=== PATIENT | female | born 1985 | race Caucasian/White ===

== ENCOUNTER 2020-04-07 18:59 | Inpatient (IN) | payer MEDICAID ==
[~2020-04-07] VITALS: Ht 157.5 cm; Wt 65.3 kg
[2020-04-07] MEDS ORDERED: SERO1TAB PO (19:16)
[2020-04-07] MEDS ORDERED: PAXI20TA29 PO (19:16)
[2020-04-07 21:07] LABS: HEMATOCRIT 42.6 % (36.0-47.0); HEMOGLOBIN 14.4 g/dl (12.0-15.5); MEAN CORPUSCULAR HEMOGLOBIN 32.3 pg (27.0-33.0); MEAN CORPUSCULAR HGB CONC 33.8 g/dl (32.0-36.5); MEAN CORPUSCULAR VOLUME 95.5 fl (80.0-96.0); PLATELET COUNT, AUTOMATED 317 10^3/uL (150-450); RED BLOOD COUNT 4.46 10^6/uL (4.00-5.40); WHITE BLOOD COUNT 8.3 10^3/uL (4.0-10.0)
[2020-04-07 21:28] LABS: AMPHETAMINES LEVEL URINE NEGATIVE (NEGATIVE); BARBITURATES URINE NEGATIVE (NEGATIVE); BENZODIAZEPINES URINE NEGATIVE (NEGATIVE); CANNABINOIDS URINE POSITIVE (NEGATIVE); COCAINE METABOLITE URINE NEGATIVE (NEGATIVE); METHADONE URINE NEGATIVE (NEGATIVE); OPIATES URINE NEGATIVE (NEGATIVE); PHENCYCLIDINE URINE NEGATIVE (NEGATIVE)
[2020-04-07 21:48] LABS: ACETAMINOPHEN LEVEL < 2.0 UG/ML (10.0-30.0); ALBUMIN 4.2 GM/DL (3.2-5.2); ALT/SGPT 18 U/L (12-78); BILIRUBIN,DIRECT < 0.1 MG/DL (0.0-0.2); BILIRUBIN,TOTAL 0.1 MG/DL (0.2-1.0); BLOOD UREA NITROGEN 8 MG/DL (7-18); CALCIUM LEVEL 9.2 MG/DL (8.5-10.1); CARBON DIOXIDE LEVEL 28 MEQ/L (21-32); CHLORIDE LEVEL 106 MEQ/L (98-107); CREATININE FOR GFR 0.68 MG/DL (0.55-1.30); ETHYL ALCOHOL (ETHANOL) 0.309 % (0.000-0.010); GLOMERULAR FILTRATION RATE > 60.0 (>60); GLUCOSE, FASTING 78 MG/DL (70-100); POTASSIUM SERUM 4.5 MEQ/L (3.5-5.1); SALICYLATE LEVEL 2.3 MG/DL (5.0-30.0); SODIUM LEVEL 144 MEQ/L (136-145); TOTAL PROTEIN 7.6 GM/DL (6.4-8.2)
[2020-04-07] MEDS ORDERED: LORazepam 2 MG TAB PO PRN (22:00)
[2020-04-07] MEDS: THIAMINE 100 MG TAB PO SCH (23:11)
[2020-04-08] MEDS ORDERED: PARO5TAB PO (08:28)
[2020-04-08] MEDS ORDERED: QUET100T2 PO (08:28)
[2020-04-08] MEDS ORDERED: CHAN1PAK11 PO (08:28)
[2020-04-08] MEDS ORDERED: QUET1TAB7 PO (08:28)
[2020-04-08] MEDS ORDERED: FOLIC ACID 1 MG TAB PO SCH (09:00)
[2020-04-08] MEDS ORDERED: MULTIVITAMINS/MINERALS THERAP 1 TAB PO SCH (09:00)
[2020-04-08] MEDS: THIAMINE 100 MG TAB PO SCH ×2 (10:03→21:06)
[2020-04-08] MEDS ORDERED: QUEtiapine FUMARATE 25 MG TAB PO ONE (11:00)
[2020-04-08] MEDS ORDERED: OXAZEPAM 15 MG CAP PO ONE (13:30)
[2020-04-08] MEDS ORDERED: MAALOX 30 ML SUSP *UDC PO PRN (13:30)
[2020-04-08] MEDS ORDERED: traZODone 50 MG TAB PO PRN (13:30)
[2020-04-08] MEDS ORDERED: MOM 30ML SUSPENSION UDC PO PRN (13:30)
[2020-04-08 16:05] VITALS: BP 136/88
[2020-04-08] MEDS: QUEtiapine FUMARATE 100 MG TAB PO SCH (21:06)
[2020-04-08] MEDS: PARoxetine 10MG TABLET PO SCH (21:06)
[2020-04-09 06:15] VITALS: BP 137/88
[2020-04-09 08:41] VITALS: BP 135/91
[2020-04-09] MEDS: QUEtiapine FUMARATE 25 MG TAB PO SCH (08:53)
[2020-04-09] MEDS: MULTIVITAMINS/MINERALS THERAP 1 TAB PO SCH (08:53)
[2020-04-09] MEDS: THIAMINE 100 MG TAB PO SCH ×2 (08:53→20:49)
[2020-04-09] MEDS: FOLIC ACID 1 MG TAB PO SCH (08:53)
[2020-04-09] MEDS ORDERED: PARoxetine 10MG TABLET PO SCH (09:00)
[2020-04-09] MEDS: LORazepam 2 MG TAB PO PRN (09:20)
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
--- NOTE | 2020-04-09 13:56 | HPEPDOC ---
[facility] Medical History & Physical Date of Admission Apr 09, 2020 Date of Service: Apr 09, 2020 History and Physical CHIEF COMPLAINT: Suicidal ideation HISTORY OF PRESENT ILLNESS: 35-year-old female with a history of alcohol use disorder, depression, anxiety, PTSD was brought to [facility] ER by family for concerns of suicidal ideation. Patient states that she didn't want to have any active suicidal ideation, but if she were to , she would not be upset about it. She feels hopeless. Having personal issues with relationships, lost her job, lost a relationship. Has a hx of SI and suicidal attempts. Has a hx of etoh use disorder, denies orior withdrawals, DTs. She currently denies any physical symptoms, shortness of breath, chest pain, palpitations, nausea, vomiting, diarrhea, fevers or chills. PAST MEDICAL HISTORY: Anxiety, depression, alcohol use disorder, PTSD PAST SURGICAL HISTORY: She denies prior surgical history. Reviewed with patient SOCIAL HISTORY: Alcohol use disorder History of substance abuse FAMILY HISTORY: Grandmother breast cancer ALLERGIES: Please see below. REVIEW OF SYSTEMS: CONSTITUTIONAL: patient denies fevers, chills HEENT: patient denies blurred vision, loss of vision, headache,. CARDIOVASCULAR: patient denies chest pain, palpitations. RESPIRATORY: patient denies shortness of breath, cough, hemoptysis. GASTROINTESTINAL: patient denies abdominal pain, n/v/d, blood in stool. GENITOURINARY: patient denies dysuria, discharge. SKIN: patient denies rashes. MUSCULOSKELETAL: patient denies joint pain, neck pain. NEUROLOGICAL: patient denies focal weakness, numbness, seizures. PSYCHIATRIC: patient denies SI/HI. ENDOCRINE: patient denies polyuria, heat intolerance, cold intolerance. HEMATOLOGIC/LYMPHATIC: patient denies easy bruising. HOME MEDICATIONS: Please see below. PHYSICAL EXAMINATION: VITAL SIGNS: please see below General: NAD, comfortable HEENT: PERRLA, EOMI, sclerae clear Neck: supple, normal ROM, no JVD Respiratory: lungs CTAB, no wheeze, no rales, no crackles CVS: RRR, normal S1, S2, no murmurs Abdo: soft, no masses, no hepatosplenomegaly, BS+, no rebound tenderness Extremities: no edema, pulses 2+ MSK: no joint deformities, normal ROM Neuro: no focal neuro deficits, moving all 4 extremities, CN2-12 intact. Strength 5/5 in all 4 extremities. No nystagmus. Psych: calm, cooperative, AAO x 3 LABORATORY DATA: See below. MICROBIOLOGY: Please see below. ASSESSMENT: 35-year-old female [facility]. Hospitalist service consulted for medical comanagement. PLAN: 1. Suicidal ideation/PTSD: Per psychiatry 2. Alcohol use disorder: Patient is on CIWA protocol. Ativan prn. Monitor for withdrawals. Agree to continue with thiamine, folic acid, multivitamin. Thank you for involving me in the care of this patient. Please reconsult as needed. Vital Signs Vital Signs Date Time Temp Pulse Resp B/P (MAP) Pulse Ox O2 Delivery O2 Flow Rate FiO2 04/09/20 08:41 102 135/91 04/09/20 06:15 98.1 16 100 Room Air Home Medications Scheduled Naltrexone HCl (Naltrexone HCl) 50 Mg Tablet, 50 MG PO QAM for craving Paroxetine HCl (Paroxetine HCl) 20 Mg Tablet, 20 MG PO QHS for mood Quetiapine Fumarate (Seroquel) 100 Mg Tablet, 150 MG PO QPM Quetiapine Fumarate (Quetiapine Fumarate) 25 Mg Tablet, 25 MG PO QAM Quetiapine Fumarate (Quetiapine Fumarate) 100 Mg Tablet, 100 MG PO QHS Quetiapine Fumarate (Quetiapine Fumarate) 50 Mg Tablet, 150 MG PO QHS for mood Quetiapine Fumarate (Quetiapine Fumarate) 25 Mg Tablet, 25 MG PO DAILY for mood Allergies Coded Allergies: Penicillins (Verified Allergy, Severe, THROAT SWELLING, 04/07/20) A-FIB/CHADSVASC A-FIB History Current/History of A-Fib/PAF?: No Current PO Anticoag Therapy: No Age/Risk Factor Scoring CHADSVASC: CHADSVASC Response (Comments) Value Age Risk Factor Age < 65 years old 0 Gender Risk Factor Female 1 Hx of CHF No 0 Hx of HTN No 0 Hx of Stroke/TIA/or VTE No 0 Hx of Diabetes No 0 Hx of Vascular Disease No 0 Total 1 RONEN WILKS MD Apr 09, 2020 13:56
[2020-04-09 16:29] VITALS: BP 139/86
[2020-04-09 17:49] VITALS: BP 139/86
[2020-04-09] MEDS: QUEtiapine FUMARATE 100 MG TAB PO SCH (20:49)
[2020-04-09] MEDS: PARoxetine 10MG TABLET PO SCH (20:49)
[2020-04-09] MEDS: PRAZOSIN 1 MG CAP PO SCH (20:49)
[2020-04-09] MEDS: MIRTAZAPINE 15 MG TAB PO SCH (20:49)
[2020-04-10 06:00] VITALS: BP 137/77
[2020-04-10 08:50] VITALS: BP 128/74
[2020-04-10] MEDS ORDERED: INFLUENZA QUADRIVALENT PF VACCINE 0.5ML SYRINGE IM ONE (09:00)
[2020-04-10] MEDS: MULTIVITAMINS/MINERALS THERAP 1 TAB PO SCH (09:27)
[2020-04-10] MEDS: QUEtiapine FUMARATE 25 MG TAB PO SCH (09:27)
[2020-04-10] MEDS: THIAMINE 100 MG TAB PO SCH (09:27)
[2020-04-10] MEDS: FOLIC ACID 1 MG TAB PO SCH (09:27)
[2020-04-10] MEDS: ACETAMINOPHEN TAB 650MG DOSE (2X325MG) PO PRN (10:46)
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
[2020-04-10] MEDS: NALTREXONE 50 MG TAB PO SCH (15:01)
[2020-04-10 16:15] VITALS: BP 124/75
[2020-04-10 16:31] VITALS: BP 137/88
[2020-04-10 20:52] VITALS: BP 148/90
[2020-04-10] MEDS: LORazepam 2 MG TAB PO PRN (20:57)
[2020-04-10] MEDS: QUEtiapine FUMARATE 100 MG TAB PO SCH (20:57)
[2020-04-10] MEDS: MIRTAZAPINE 15 MG TAB PO SCH (20:57)
[2020-04-10] MEDS: PARoxetine 10MG TABLET PO SCH (20:57)
[2020-04-10] MEDS: PRAZOSIN 1 MG CAP PO SCH (20:58)
[2020-04-10 22:45] VITALS: BP 148/92
[2020-04-11 01:15] VITALS: BP 145/88
[2020-04-11 05:30] VITALS: BP 115/74
[2020-04-11 06:33] VITALS: BP 115/62
[2020-04-11] MEDS: QUEtiapine FUMARATE 25 MG TAB PO SCH (08:31)
[2020-04-11] MEDS: NALTREXONE 50 MG TAB PO SCH (08:31)
[2020-04-11] MEDS: FOLIC ACID 1 MG TAB PO SCH (08:32)
[2020-04-11] MEDS: MULTIVITAMINS/MINERALS THERAP 1 TAB PO SCH (08:32)
[2020-04-11 09:53] VITALS: BP 124/65
--- NOTE | 2020-04-11 11:13 | MHIPNPDOC ---
[facility] Progress Note Progress Note DATE OF SERVICE: 04/11/20 Subjective HPI: Erika presents today for a follow up. She reports that she is feeling somewhat better from her depression. Patient does report that she has difficulty sleeping. MEDICATIONS: She is on a number of sleeping medications including Mirtazapine and Seroquel. Objective Affect: Constricted. Appropriate to context. Mood: Appropriately reactive. Mildy dysthymic. Generally good. Speech: Spontaneous and Fluid. Normal rate. Normal volume. Thought Form: Linear and goal directed. Thought Content: No evidence of aggressive or homicidal ideation. No evidence of delusions. No thoughts of self harm. No evidence of suicidal ideation. Judgement: Fair to poor. Insight: Fair to poor. Assessment F33.9 Major depressive disorder, recurrent, unspecified F10.99 Alcohol use, unspecified with unspecified alcohol-induced disorder Plan Discontinue Mirtazapine and Seroquel. Will use a small dose of Ambien for treatment while she is here at 2.5 mg nightly PRN to help with sleep as it appears this situation is likely related to acute adjustment and withdrawal from alcohol. Will continue her antidepressant at current dose. Vital Signs Vital Signs Date Time Temp Pulse Resp B/P (MAP) Pulse Ox O2 Delivery O2 Flow Rate FiO2 04/11/20 09:53 79 124/65 04/11/20 06:33 98.4 12 Room Air 04/09/20 06:15 100 Current Medications Current Medications Medications (Trade) Dose Ordered Sig/Minerva Route PRN Reason Start Time Stop Time Status Last Admin Dose Admin Acetaminophen (Tylenol Tab) 650 mg Q6HP PRN PO HEADACHE or DISCOMFORT 04/08/20 13:30 04/10/20 10:46 Al Hydrox/Mg Hydrox/Simethicone (Mylanta) 30 ml Q4HP PRN PO HEARTBURN/INDIGESTION 04/08/20 13:30 Folic Acid (Folic Acid) 1 mg DAILY PO 04/08/20 09:00 04/08/20 13:30 DC 04/08/20 10:03 Folic Acid (Folic Acid) 1 mg DAILY PO 04/09/20 09:00 04/11/20 08:32 Home Med (Med Rec Complete!) ASDIRECTED XX 04/08/20 08:30 04/08/20 08:30 DC Lorazepam (Ativan) 2 mg ASDIRECTED PRN PO SEE PROTOCOL 04/07/20 22:00 04/08/20 13:31 DC 04/08/20 13:23 Lorazepam (Ativan) 2 mg ASDIRECTED PRN PO SEE PROTOCOL 04/08/20 13:30 04/10/20 20:57 Magnesium Hydroxide (Milk Of Magnesia) 30 ml DAILYPRN PRN PO CONSTIPATION 04/08/20 13:30 Mirtazapine (Remeron) 15 mg QHS PO 04/09/20 21:00 04/10/20 20:57 Miscellaneous (Unresolved Clarification Entry) SEE LABEL COMMENTS DAILY XX 04/09/20 14:00 04/09/20 15:06 DC Multivitamins (Theragram-M) 1 tab DAILY PO 04/08/20 09:00 04/08/20 13:31 DC 04/08/20 10:03 Multivitamins (Theragram-M) 1 tab DAILY PO 04/09/20 09:00 04/11/20 08:32 Naltrexone HCl (Revia) 50 mg QAM PO 04/10/20 09:00 04/11/20 08:31 Paroxetine HCl (PAXil) 10 mg DAILY PO 04/09/20 09:00 04/08/20 20:58 DC Paroxetine HCl (PAXil) 10 mg QHS PO 04/08/20 21:00 04/10/20 20:57 Paroxetine HCl (PAXil) 10 mg QHS PO 04/08/21 21:00 04/08/20 21:04 DC Prazosin HCl (Minipress) 1 mg QHS PO 04/09/20 21:00 04/10/20 20:58 Quetiapine Fumarate (SEROquel) 25 mg DAILY PO 04/09/20 09:00 04/11/20 08:31 Quetiapine Fumarate (SEROquel) 100 mg QHS PO 04/08/20 21:00 04/10/20 20:57 Thiamine HCl (Thiamine HCl) 100 mg BID PO 04/07/20 21:00 04/08/20 13:32 DC 04/08/20 10:03 Thiamine HCl (Thiamine HCl) 100 mg BID PO 04/08/20 21:00 04/10/20 09:01 DC 04/10/20 09:27 Trazodone HCl (Desyrel) 50 mg QHSP PRN PO INSOMNIA 04/08/20 13:30 Cancel Allergies Coded Allergies: Penicillins (Verified Allergy, Severe, THROAT SWELLING, 04/07/20) LEYLA KWON DO Apr 11, 2020 11:13
[2020-04-11 17:54] VITALS: BP 112/68
[2020-04-11 20:02] VITALS: BP 154/92
[2020-04-11] MEDS: PARoxetine 20 MG TAB PO SCH (20:16)
[2020-04-11] MEDS: PRAZOSIN 1 MG CAP PO SCH (20:16)
[2020-04-11] MEDS ORDERED: zolPIDEM TARTRATE 5 MG TAB PO SCH (21:00)
[2020-04-12 06:53] VITALS: BP 138/86
[2020-04-12 08:06] VITALS: BP 138/86
[2020-04-12] MEDS: QUEtiapine FUMARATE 25 MG TAB PO SCH (08:40)
[2020-04-12] MEDS: MULTIVITAMINS/MINERALS THERAP 1 TAB PO SCH (08:41)
[2020-04-12] MEDS: NALTREXONE 50 MG TAB PO SCH (08:41)
[2020-04-12] MEDS: FOLIC ACID 1 MG TAB PO SCH (08:41)
--- NOTE | 2020-04-12 15:05 | MHIPNPDOC ---
[facility] Progress Note Progress Note DATE OF SERVICE: 04/12/20 HISTORY: As per previous reports: "HISTORY OF THE PRESENT ILLNESS: Patient is a 35 -year-old , female, who, as per ED report: "Pt presented to [facility] Ed with pt's uncle (Ted Guzman [phone]) Pt is a poor historian, per MD. (Please read note from Uncle ted in family support area of chart.) Pt presented with a DIAMOND of .309, at 21:00 04/07/20. Pt stated she has been having SI, no plan, off and on for over a year, called her mother last night from [place], and told "mom I don't care if I am alive or not, having suicidal thoughts, and I need help," stressors are 1: Lost her job, 2: no place to live homeless, 3: Break-up 2 months ago, is compliant with her medications she receives from an on-line service, LAKHWINDER, Paxil 12MG daily, and seraguil 25mg in am, 100mg at night, sleeps when she takes her medications, not eating well, less for past year, drinks etoh more than 2 times a week, has a card for THC, (PTSD) "smokes cannabis once a month," no AH, no VH. Pt states hopeless and helpless at this time, attempted to kill self at age 17 and 21 with an OD, hospitalized at age 17 to [facility], and family hx of maternal side of family for depression, does not know father's side. Pt had poor eye contact, and very tearful. Pt was sleeping in position. Pt states she has been suffering from panic attacks and severe anxiety lately" VITAL SIGNS: See below. NEW TEST RESULTS: See below CURRENT MEDICATIONS: See below. MENTAL STATUS EXAMINATION: General Appearance: well groomed, appears stated age, hospital scrubs/clothing Build: average Demeanor: average Eye Contact: average Activity: average Behavior: cooperative, pleasant Speech: clear, spontaneous, normal volume Mood: euthymic Affect: full, appropriate, congruent, anxious but less than 2 days ago Thought Process: logical/linear Thought Content (Delusions): none reported Thought Content (Other): denies SI/HI, thought delusions Thought Content (Aggressive): none reported Perception (Hallucinations): none reported Perception (Other): none reported Cognition (Impairment of): none reported Cognition(Intelligence Est.): average Oriented: Awake, Alert, Oriented times three Insight: fair Judgment: Fair Psychosis: Denies Diagnoses 1. Post Traumatic Stress Disorder 2. Social Anxiety disorder 3, Panic disorder 4. Agoraphobia 6. Alcohol use disorder 7. Major Depressive Disorder, recurrent, moderate-severe 8. R/O Alcohol induced depressive disorder ASSESSMENT: She tells me she has been recently started on Ambien 2.5 mgs PO QHS and she feels is not working properly. I have increased it t 5 mgs but she has an ETOH use disorder. she has to be made aware that using ETO while being on Ambien can be dangerous. MANAGEMENT PLAN: i have increased Ambien to 5 mgs PO QHS TIME SPENT: 25 minutes. Vital Signs Vital Signs Date Time Temp Pulse Resp B/P (MAP) Pulse Ox O2 Delivery O2 Flow Rate FiO2 04/12/20 08:09 Room Air 04/12/20 08:06 85 138/86 04/12/20 06:53 98.2 17 04/09/20 06:15 100 Current Medications Current Medications Medications (Trade) Dose Ordered Sig/Minerva Route PRN Reason Start Time Stop Time Status Last Admin Dose Admin Acetaminophen (Tylenol Tab) 650 mg Q6HP PRN PO HEADACHE or DISCOMFORT 04/08/20 13:30 04/10/20 10:46 Al Hydrox/Mg Hydrox/Simethicone (Mylanta) 30 ml Q4HP PRN PO HEARTBURN/INDIGESTION 04/08/20 13:30 Folic Acid (Folic Acid) 1 mg DAILY PO 04/08/20 09:00 04/08/20 13:30 DC 04/08/20 10:03 Folic Acid (Folic Acid) 1 mg DAILY PO 04/09/20 09:00 04/12/20 08:41 Home Med (Med Rec Complete!) ASDIRECTED XX 04/08/20 08:30 04/08/20 08:30 DC Lorazepam (Ativan) 2 mg ASDIRECTED PRN PO SEE PROTOCOL 04/07/20 22:00 04/08/20 13:31 DC 04/08/20 13:23 Lorazepam (Ativan) 2 mg ASDIRECTED PRN PO SEE PROTOCOL 04/08/20 13:30 04/10/20 20:57 Magnesium Hydroxide (Milk Of Magnesia) 30 ml DAILYPRN PRN PO CONSTIPATION 04/08/20 13:30 Mirtazapine (Remeron) 15 mg QHS PO 04/09/20 21:00 04/11/20 13:35 DC 04/10/20 20:57 Miscellaneous (Unresolved Clarification Entry) SEE LABEL COMMENTS DAILY XX 04/09/20 14:00 04/09/20 15:06 DC Multivitamins (Theragram-M) 1 tab DAILY PO 04/08/20 09:00 04/08/20 13:31 DC 04/08/20 10:03 Multivitamins (Theragram-M) 1 tab DAILY PO 04/09/20 09:00 04/12/20 08:41 Naltrexone HCl (Revia) 50 mg QAM PO 04/10/20 09:00 04/12/20 08:41 Paroxetine HCl (PAXil) 10 mg DAILY PO 04/09/20 09:00 04/08/20 20:58 DC Paroxetine HCl (PAXil) 10 mg QHS PO 04/08/20 21:00 04/11/20 13:35 DC 04/10/20 20:57 Paroxetine HCl (PAXil) 10 mg QHS PO 04/08/21 21:00 04/08/20 21:04 DC Paroxetine HCl (PAXil) 20 mg QHS PO 04/11/20 21:00 04/11/20 20:16 Prazosin HCl (Minipress) 1 mg QHS PO 04/09/20 21:00 04/11/20 20:16 Quetiapine Fumarate (SEROquel) 25 mg DAILY PO 04/09/20 09:00 04/12/20 08:40 Quetiapine Fumarate (SEROquel) 100 mg QHS PO 04/08/20 21:00 04/11/20 13:36 DC 04/10/20 20:57 Thiamine HCl (Thiamine HCl) 100 mg BID PO 04/07/20 21:00 04/08/20 13:32 DC 04/08/20 10:03 Thiamine HCl (Thiamine HCl) 100 mg BID PO 04/08/20 21:00 04/10/20 09:01 DC 04/10/20 09:27 Trazodone HCl (Desyrel) 50 mg QHSP PRN PO INSOMNIA 04/08/20 13:30 Cancel Zolpidem Tartrate (Ambien) 2.5 mg QHS PO 04/11/20 21:00 04/11/20 20:16 Allergies Coded Allergies: Penicillins (Verified Allergy, Severe, THROAT SWELLING, 04/07/20) CHUNG NICOLAS MD Apr 12, 2020 14:29
[2020-04-12 16:00] VITALS: BP 134/90
[2020-04-12] MEDS: PARoxetine 20 MG TAB PO SCH (20:34)
[2020-04-12] MEDS: PRAZOSIN 1 MG CAP PO SCH (20:35)
[2020-04-12] MEDS ORDERED: zolPIDEM TARTRATE 5 MG TAB PO SCH (21:00)
[2020-04-13 01:30] VITALS: BP 128/76
[2020-04-13 06:31] VITALS: BP 123/88
[2020-04-13] MEDS: FOLIC ACID 1 MG TAB PO SCH (08:03)
[2020-04-13] MEDS: QUEtiapine FUMARATE 25 MG TAB PO SCH (08:03)
[2020-04-13] MEDS: MULTIVITAMINS/MINERALS THERAP 1 TAB PO SCH (08:03)
[2020-04-13] MEDS: NALTREXONE 50 MG TAB PO SCH (08:03)
[2020-04-13 10:30] VITALS: BP 123/88
--- NOTE | 2020-04-13 15:58 | MHIPNPDOC ---
[facility] Progress Note Progress Note DATE OF SERVICE: 04/13/20 HISTORY: As per previous reports: "HISTORY OF THE PRESENT ILLNESS: Patient is a 35 -year-old , female, who, as per ED report: "Pt presented to [facility] Ed with pt's uncle (Ted Guzman [phone]) Pt is a poor historian, per MD. (Please read note from Uncle ted in family support area of chart.) Pt presented with a DIAMOND of .309, at 21:00 04/07/20. Pt stated she has been having SI, no plan, off and on for over a year, called her mother last night from [facility], and told "mom I don't care if I am alive or not, having suicidal thoughts, and I need help," stressors are 1: Lost her job, 2: no place to live homeless, 3: Break-up 2 months ago, is compliant with her medications she receives from an on-line service, LAKHWINDER, Paxil 12MG daily, and seraguil 25mg in am, 100mg at night, sleeps when she takes her medications, not eating well, less for past year, drinks etoh more than 2 times a week, has a card for THC, (PTSD) "smokes cannabis once a month," no AH, no VH. Pt states hopeless and helpless at this time, attempted to kill self at age 17 and 21 with an OD, hospitalized at age 17 to [facility] [place], and family hx of maternal side of family for depression, does not know father's side. Pt had poor eye contact, and very tearful. Pt was sleeping in position. Pt states she has been suffering from panic attacks and severe anxiety lately" VITAL SIGNS: See below. NEW TEST RESULTS: See below CURRENT MEDICATIONS: See below. MENTAL STATUS EXAMINATION: General Appearance: well groomed, appears stated age, she is wearing personal clothes at this time, wearing a face mask Build: average Demeanor: cooperative Eye Contact: average Activity: fidgety, restless Behavior: cooperative, anxious, uneasy after she heard that her grandmother didn't want her to go live at her house Speech: clear, spontaneous, normal volume Mood: anxious, sad Affect: anxious, sad, appropriate Thought Process: logical/linear Thought Content (Delusions): none reported Thought Content (Other): denies SI/HI, thought delusions. Denies SI/HI, reports feeling hopeless, helpless Thought Content (Aggressive): reports frustration Perception (Hallucinations): none reported Perception (Other): none reported Cognition (Impairment of): none reported Cognition(Intelligence Est.): average Oriented: Awake, Alert, Oriented times three Insight: fair Judgment: Fair Psychosis: Denies Diagnoses 1. Post Traumatic Stress Disorder 2. Social Anxiety disorder 3, Panic disorder 4. Agoraphobia 6. Alcohol use disorder 7. Major Depressive Disorder, recurrent, moderate-severe 8. R/O Alcohol induced depressive disorder ASSESSMENT: she is not sleeping with Ambien and I think that it could be dangerous if she decides to start drinking alcohol again. She is not really insightful about the severity of her ETOH problem, she has made all sort of excuses when we talk about her not going to AA or other Rehab programs. She says none of them work for her. Today, she had a major disappointment because her G randmother refused to take her home with her. Apparently her grandmother and her grandfather don't want her at their home because her alcohol abuse is severe. Krish has seen hr passing out in the porch and other living spaces at home. She has seen her sneaking in alcohol and GM says this problem really doesn't help her mental or physical health. When Saray heard this, she got teary eyes and said "It's Ok, I've been homeless before, I can take care of myself". She says that she was living at her work place in [place], she really didn't have a place to live in there but she doesn't have place to live in here either. She says she doesn't have any other relatives to go because they all have turned their back on her when she needed them. asked her to think about other people that she would think would be willing to take her in and if she doesn't have anybody else, she will have to go to [facility]. She says she won't take Ambien anymore and she says she will tke Seroquel, that at a certain point, she was taking 100 mgs and she stopped taking it because she was gaining amaris but she prefers to be overweight than sleepless. MANAGEMENT PLAN: Discontinued ambien and started Seroquel 100 mgs PO QHS TIME SPENT: 15 minutes. Vital Signs Vital Signs Date Time Temp Pulse Resp B/P (MAP) Pulse Ox O2 Delivery O2 Flow Rate FiO2 04/13/20 10:30 78 123/88 04/13/20 09:59 Room Air 04/13/20 06:31 97.9 16 04/09/20 06:15 100 Current Medications Current Medications Medications (Trade) Dose Ordered Sig/Minerva Route PRN Reason Start Time Stop Time Status Last Admin Dose Admin Acetaminophen (Tylenol Tab) 650 mg Q6HP PRN PO HEADACHE or DISCOMFORT 04/08/20 13:30 04/10/20 10:46 Al Hydrox/Mg Hydrox/Simethicone (Mylanta) 30 ml Q4HP PRN PO HEARTBURN/INDIGESTION 04/08/20 13:30 Folic Acid (Folic Acid) 1 mg DAILY PO 04/08/20 09:00 04/08/20 13:30 DC 04/08/20 10:03 Folic Acid (Folic Acid) 1 mg DAILY PO 04/09/20 09:00 04/13/20 08:03 Home Med (Med Rec Complete!) ASDIRECTED XX 04/08/20 08:30 04/08/20 08:30 DC Lorazepam (Ativan) 2 mg ASDIRECTED PRN PO SEE PROTOCOL 04/07/20 22:00 04/08/20 13:31 DC 04/08/20 13:23 Lorazepam (Ativan) 2 mg ASDIRECTED PRN PO SEE PROTOCOL 04/08/20 13:30 04/10/20 20:57 Magnesium Hydroxide (Milk Of Magnesia) 30 ml DAILYPRN PRN PO CONSTIPATION 04/08/20 13:30 Mirtazapine (Remeron) 15 mg QHS PO 04/09/20 21:00 04/11/20 13:35 DC 04/10/20 20:57 Miscellaneous (Unresolved Clarification Entry) SEE LABEL COMMENTS DAILY XX 04/09/20 14:00 04/09/20 15:06 DC Multivitamins (Theragram-M) 1 tab DAILY PO 04/08/20 09:00 04/08/20 13:31 DC 04/08/20 10:03 Multivitamins (Theragram-M) 1 tab DAILY PO 04/09/20 09:00 04/13/20 08:03 Naltrexone HCl (Revia) 50 mg QAM PO 04/10/20 09:00 04/13/20 08:03 Paroxetine HCl (PAXil) 10 mg DAILY PO 04/09/20 09:00 04/08/20 20:58 DC Paroxetine HCl (PAXil) 10 mg QHS PO 04/08/20 21:00 04/11/20 13:35 DC 04/10/20 20:57 Paroxetine HCl (PAXil) 10 mg QHS PO 04/08/21 21:00 04/08/20 21:04 DC Paroxetine HCl (PAXil) 20 mg QHS PO 04/11/20 21:00 04/12/20 20:34 Prazosin HCl (Minipress) 1 mg QHS PO 04/09/20 21:00 04/12/20 20:35 Quetiapine Fumarate (SEROquel) 25 mg DAILY PO 04/09/20 09:00 04/13/20 08:03 Quetiapine Fumarate (SEROquel) 100 mg QHS PO 04/08/20 21:00 04/11/20 13:36 DC 04/10/20 20:57 Thiamine HCl (Thiamine HCl) 100 mg BID PO 04/07/20 21:00 04/08/20 13:32 DC 04/08/20 10:03 Thiamine HCl (Thiamine HCl) 100 mg BID PO 04/08/20 21:00 04/10/20 09:01 DC 04/10/20 09:27 Trazodone HCl (Desyrel) 50 mg QHSP PRN PO INSOMNIA 04/08/20 13:30 Cancel Zolpidem Tartrate (Ambien) 2.5 mg QHS PO 04/11/20 21:00 04/12/20 14:55 DC 04/11/20 20:16 Zolpidem Tartrate (Ambien) 5 mg QHS PO 04/12/20 21:00 04/12/20 20:34 Allergies Coded Allergies: Penicillins (Verified Allergy, Severe, THROAT SWELLING, 04/07/20) CHUNG NICOLAS MD Apr 13, 2020 15:58
[2020-04-13 18:00] VITALS: BP 152/86
[2020-04-13] MEDS ORDERED: QUEtiapine FUMARATE 100 MG TAB PO SCH (21:00)
[2020-04-13] MEDS: PRAZOSIN 1 MG CAP PO SCH (21:17)
[2020-04-13] MEDS: PARoxetine 20 MG TAB PO SCH (21:17)
[2020-04-14 06:32] VITALS: BP 130/59
[2020-04-14] MEDS: QUEtiapine FUMARATE 25 MG TAB PO SCH (08:28)
[2020-04-14] MEDS: MULTIVITAMINS/MINERALS THERAP 1 TAB PO SCH (09:00)
[2020-04-14] MEDS: NALTREXONE 50 MG TAB PO SCH (09:00)
[2020-04-14] MEDS: FOLIC ACID 1 MG TAB PO SCH (09:00)
--- NOTE | 2020-04-14 10:30 | MHIPNPDOC ---
[facility] Progress Note Progress Note DATE OF SERVICE: 04/14/20 Subjective HPI: Saray presents today for questions about medication. She reports that she feels anxious on the unit due to multiple episodes of physical aggression from other patients. MEDICATIONS: Patient reports that she has been tried on the Seroquel and although shes not pleased with the weight gain side effects, the medication helps with her sleep. Objective Speech: Normal volume. Spontaneous and Fluid. Normal rate. Thought Content: No evidence of aggressive or homicidal ideation. No thoughts of self harm. No evidence of delusions. No evidence of suicidal ideation. Perception: No perceptual abnormalities noted. Judgement: Intact as evidenced by decision making in the recent past. Insight: Good insight into symptoms and treatment options. Assessment F33.8 Other recurrent depressive disorders F10.980 Alcohol use, unspecified with alcohol-induced anxiety disorder Plan Continue current medications with an increase of Seroquel to 150 nightly, discussed using melatonin on outpatient for weight gain. Vital Signs Vital Signs Date Time Temp Pulse Resp B/P (MAP) Pulse Ox O2 Delivery O2 Flow Rate FiO2 04/14/20 06:32 97.2 80 18 130/59 (82) Room Air 04/09/20 06:15 100 Current Medications Current Medications Medications (Trade) Dose Ordered Sig/Minerva Route PRN Reason Start Time Stop Time Status Last Admin Dose Admin Acetaminophen (Tylenol Tab) 650 mg Q6HP PRN PO HEADACHE or DISCOMFORT 04/08/20 13:30 04/10/20 10:46 Al Hydrox/Mg Hydrox/Simethicone (Mylanta) 30 ml Q4HP PRN PO HEARTBURN/INDIGESTION 04/08/20 13:30 Folic Acid (Folic Acid) 1 mg DAILY PO 04/08/20 09:00 04/08/20 13:30 DC 04/08/20 10:03 Folic Acid (Folic Acid) 1 mg DAILY PO 04/09/20 09:00 04/13/20 08:03 Home Med (Med Rec Complete!) ASDIRECTED XX 04/08/20 08:30 04/08/20 08:30 DC Lorazepam (Ativan) 2 mg ASDIRECTED PRN PO SEE PROTOCOL 04/07/20 22:00 04/08/20 13:31 DC 04/08/20 13:23 Lorazepam (Ativan) 2 mg ASDIRECTED PRN PO SEE PROTOCOL 04/08/20 13:30 04/10/20 20:57 Magnesium Hydroxide (Milk Of Magnesia) 30 ml DAILYPRN PRN PO CONSTIPATION 04/08/20 13:30 Mirtazapine (Remeron) 15 mg QHS PO 04/09/20 21:00 04/11/20 13:35 DC 04/10/20 20:57 Miscellaneous (Unresolved Clarification Entry) SEE LABEL COMMENTS DAILY XX 04/09/20 14:00 04/09/20 15:06 DC Multivitamins (Theragram-M) 1 tab DAILY PO 04/08/20 09:00 04/08/20 13:31 DC 04/08/20 10:03 Multivitamins (Theragram-M) 1 tab DAILY PO 04/09/20 09:00 04/13/20 08:03 Naltrexone HCl (Revia) 50 mg QAM PO 04/10/20 09:00 04/13/20 08:03 Paroxetine HCl (PAXil) 10 mg DAILY PO 04/09/20 09:00 04/08/20 20:58 DC Paroxetine HCl (PAXil) 10 mg QHS PO 04/08/20 21:00 04/11/20 13:35 DC 04/10/20 20:57 Paroxetine HCl (PAXil) 10 mg QHS PO 04/08/21 21:00 04/08/20 21:04 DC Paroxetine HCl (PAXil) 20 mg QHS PO 04/11/20 21:00 04/13/20 21:17 Prazosin HCl (Minipress) 1 mg QHS PO 04/09/20 21:00 04/13/20 21:17 Quetiapine Fumarate (SEROquel) 25 mg DAILY PO 04/09/20 09:00 04/14/20 08:28 Quetiapine Fumarate (SEROquel) 100 mg QHS PO 04/08/20 21:00 04/11/20 13:36 DC 04/10/20 20:57 Quetiapine Fumarate (SEROquel) 100 mg QHS PO 04/13/20 21:00 04/13/20 21:17 Thiamine HCl (Thiamine HCl) 100 mg BID PO 04/07/20 21:00 04/08/20 13:32 DC 04/08/20 10:03 Thiamine HCl (Thiamine HCl) 100 mg BID PO 04/08/20 21:00 04/10/20 09:01 DC 04/10/20 09:27 Trazodone HCl (Desyrel) 50 mg QHSP PRN PO INSOMNIA 04/08/20 13:30 Cancel Zolpidem Tartrate (Ambien) 2.5 mg QHS PO 04/11/20 21:00 04/12/20 14:55 DC 04/11/20 20:16 Zolpidem Tartrate (Ambien) 5 mg QHS PO 04/12/20 21:00 04/13/20 15:44 DC 04/12/20 20:34 Allergies Coded Allergies: Penicillins (Verified Allergy, Severe, THROAT SWELLING, 04/07/20) LEYLA KWON DO Apr 14, 2020 10:30
[2020-04-14] MEDS ORDERED: hydrOXYzine 50 MG TAB PO PRN (14:00)
[2020-04-14] MEDS: hydrOXYzine 25 MG TAB PO PRN (14:48)
[2020-04-14 16:29] VITALS: BP 141/94
[2020-04-14] MEDS: PRAZOSIN 1 MG CAP PO SCH (21:29)
[2020-04-14] MEDS: PARoxetine 20 MG TAB PO SCH (21:29)
[2020-04-14] MEDS: QUEtiapine FUMARATE 50 MG TAB PO SCH (21:29)
[2020-04-15 06:34] VITALS: BP 117/62
[2020-04-15] MEDS: MULTIVITAMINS/MINERALS THERAP 1 TAB PO SCH (08:24)
[2020-04-15] MEDS: FOLIC ACID 1 MG TAB PO SCH (08:24)
[2020-04-15] MEDS: NALTREXONE 50 MG TAB PO SCH (08:24)
[2020-04-15] MEDS: QUEtiapine FUMARATE 25 MG TAB PO SCH (08:24)
[2020-04-15 09:48] VITALS: BP 117/84
--- NOTE | 2020-04-15 09:48 | MHIPNPDOC ---
[facility] Progress Note Progress Note DATE OF SERVICE: 04/15/20 Subjective Copy HPI: Patient was met with today. She reports that her depression is starting to lift slowly, but surely. Otherwise, she reports to be engaging well on the unit, although she feels anxious about some other patients due to some recent agitation episodes. She states that shes amenable to going back on the Seroquel. Objective Copy Appearance: Fair hygiene. Fair eye contact. Affect: Mildly dysthymic. Constricted. Cognition: Grossly intact. Thought Form: Linear and goal directed. Thought Content: No thoughts of self harm. No evidence of suicidal ideation. No evidence of delusions. No evidence of aggressive or homicidal ideation. Judgement: Poor to fair. Insight: Poor to fair. Assessment Copy F33.9 Major depressive disorder, recurrent, unspecified F10.20 Alcohol dependence, uncomplicated Plan Copy Discussed with her again about melatonin, which is unavailable on the unit at this time, and about further treatment. Continue antidepressant as current. Well talk with patient about potential use of Disulfiriam as a means of helping her potential discharge as reportedly this is quite a difficult issue for her grandmother to accept. Also, conversed about the potential benefits, risks, and other related aspects to the patient. She reports to be amenable to this, although still minimizes her alcohol use. Shes not amenable to rehab at this time after discussion again. She would likely do best in this situation as her chances of doing as an outpatient and DSS housing are fairly poor. Vital Signs Vital Signs Date Time Temp Pulse Resp B/P (MAP) Pulse Ox O2 Delivery O2 Flow Rate FiO2 04/15/20 06:34 97.8 78 18 117/62 (80) Room Air 04/09/20 06:15 100 Current Medications Current Medications Medications (Trade) Dose Ordered Sig/Minerva Route PRN Reason Start Time Stop Time Status Last Admin Dose Admin Acetaminophen (Tylenol Tab) 650 mg Q6HP PRN PO HEADACHE or DISCOMFORT 04/08/20 13:30 04/10/20 10:46 Al Hydrox/Mg Hydrox/Simethicone (Mylanta) 30 ml Q4HP PRN PO HEARTBURN/INDIGESTION 04/08/20 13:30 Folic Acid (Folic Acid) 1 mg DAILY PO 04/08/20 09:00 04/08/20 13:30 DC 04/08/20 10:03 Folic Acid (Folic Acid) 1 mg DAILY PO 04/09/20 09:00 04/15/20 08:24 Home Med (Med Rec Complete!) ASDIRECTED XX 04/08/20 08:30 04/08/20 08:30 DC Hydroxyzine HCl (Atarax) 25 mg Q8HP PRN PO anxiety 04/14/20 14:00 04/14/20 14:48 Hydroxyzine HCl (Atarax) 50 mg Q8HP PRN PO anxiety 04/14/20 14:00 04/14/20 13:59 DC Lorazepam (Ativan) 2 mg ASDIRECTED PRN PO SEE PROTOCOL 04/07/20 22:00 04/08/20 13:31 DC 04/08/20 13:23 Lorazepam (Ativan) 2 mg ASDIRECTED PRN PO SEE PROTOCOL 04/08/20 13:30 04/10/20 20:57 Magnesium Hydroxide (Milk Of Magnesia) 30 ml DAILYPRN PRN PO CONSTIPATION 04/08/20 13:30 Mirtazapine (Remeron) 15 mg QHS PO 04/09/20 21:00 04/11/20 13:35 DC 04/10/20 20:57 Miscellaneous (Unresolved Clarification Entry) SEE LABEL COMMENTS DAILY XX 04/09/20 14:00 04/09/20 15:06 DC Multivitamins (Theragram-M) 1 tab DAILY PO 04/08/20 09:00 04/08/20 13:31 DC 04/08/20 10:03 Multivitamins (Theragram-M) 1 tab DAILY PO 04/09/20 09:00 04/15/20 08:24 Naltrexone HCl (Revia) 50 mg QAM PO 04/10/20 09:00 04/15/20 08:24 Paroxetine HCl (PAXil) 10 mg DAILY PO 04/09/20 09:00 04/08/20 20:58 DC Paroxetine HCl (PAXil) 10 mg QHS PO 04/08/20 21:00 04/11/20 13:35 DC 04/10/20 20:57 Paroxetine HCl (PAXil) 10 mg QHS PO 04/08/21 21:00 04/08/20 21:04 DC Paroxetine HCl (PAXil) 20 mg QHS PO 04/11/20 21:00 04/14/20 21:29 Prazosin HCl (Minipress) 1 mg QHS PO 04/09/20 21:00 04/14/20 21:29 Quetiapine Fumarate (SEROquel) 25 mg DAILY PO 04/09/20 09:00 04/15/20 08:24 Quetiapine Fumarate (SEROquel) 100 mg QHS PO 04/08/20 21:00 04/11/20 13:36 DC 04/10/20 20:57 Quetiapine Fumarate (SEROquel) 100 mg QHS PO 04/13/20 21:00 04/14/20 13:57 DC 04/13/20 21:17 Quetiapine Fumarate (SEROquel) 150 mg QHS PO 04/14/20 21:00 04/14/20 21:29 Thiamine HCl (Thiamine HCl) 100 mg BID PO 04/07/20 21:00 04/08/20 13:32 DC 04/08/20 10:03 Thiamine HCl (Thiamine HCl) 100 mg BID PO 04/08/20 21:00 04/10/20 09:01 DC 04/10/20 09:27 Trazodone HCl (Desyrel) 50 mg QHSP PRN PO INSOMNIA 04/08/20 13:30 Cancel Zolpidem Tartrate (Ambien) 2.5 mg QHS PO 04/11/20 21:00 04/12/20 14:55 DC 04/11/20 20:16 Zolpidem Tartrate (Ambien) 5 mg QHS PO 04/12/20 21:00 04/13/20 15:44 DC 04/12/20 20:34 Allergies Coded Allergies: Penicillins (Verified Allergy, Severe, THROAT SWELLING, 04/07/20) LEYLA KWON DO Apr 15, 2020 09:48
[2020-04-15] MEDS: hydrOXYzine 25 MG TAB PO PRN (10:29)
[2020-04-15] MEDS: QUEtiapine FUMARATE 50 MG TAB PO SCH (22:38)
[2020-04-15] MEDS: PARoxetine 20 MG TAB PO SCH (22:38)
[2020-04-15] MEDS: PRAZOSIN 1 MG CAP PO SCH (22:39)
[2020-04-16 06:32] VITALS: BP 115/65
[2020-04-16] MEDS: MULTIVITAMINS/MINERALS THERAP 1 TAB PO SCH (08:38)
[2020-04-16] MEDS: NALTREXONE 50 MG TAB PO SCH (08:38)
[2020-04-16] MEDS: FOLIC ACID 1 MG TAB PO SCH (08:38)
[2020-04-16] MEDS: QUEtiapine FUMARATE 25 MG TAB PO SCH (08:38)
[2020-04-16 16:00] VITALS: BP 115/65
[2020-04-16] MEDS: hydrOXYzine 25 MG TAB PO PRN (16:03)
[2020-04-16] MEDS: PARoxetine 20 MG TAB PO SCH (22:05)
[2020-04-16] MEDS: QUEtiapine FUMARATE 50 MG TAB PO SCH (22:05)
[2020-04-16] MEDS: PRAZOSIN 1 MG CAP PO SCH (22:06)
[2020-04-17 06:50] VITALS: BP 123/58
[2020-04-17] MEDS: QUEtiapine FUMARATE 25 MG TAB PO SCH (09:30)
[2020-04-17] MEDS: MULTIVITAMINS/MINERALS THERAP 1 TAB PO SCH (09:31)
[2020-04-17] MEDS: NALTREXONE 50 MG TAB PO SCH (09:31)
[2020-04-17] MEDS: FOLIC ACID 1 MG TAB PO SCH (09:31)
[2020-04-17] MEDS: hydrOXYzine 25 MG TAB PO PRN ×2 (09:49→17:46)
[2020-04-17] MEDS: ACETAMINOPHEN TAB 650MG DOSE (2X325MG) PO PRN (09:49)
[2020-04-17] MEDS ORDERED: hydrOXYzine 25 MG TAB PO STA (13:00)
[2020-04-17 18:54] VITALS: BP 142/90
[2020-04-17] MEDS: PRAZOSIN 1 MG CAP PO SCH (22:06)
[2020-04-17] MEDS: PARoxetine 20 MG TAB PO SCH (22:07)
[2020-04-17] MEDS: QUEtiapine FUMARATE 50 MG TAB PO SCH (22:07)
[2020-04-18 06:56] VITALS: BP 133/75
[2020-04-18] MEDS: QUEtiapine FUMARATE 25 MG TAB PO SCH (08:51)
[2020-04-18] MEDS: MULTIVITAMINS/MINERALS THERAP 1 TAB PO SCH (08:51)
[2020-04-18] MEDS: NALTREXONE 50 MG TAB PO SCH (08:51)
[2020-04-18] MEDS: hydrOXYzine 25 MG TAB PO PRN ×2 (08:51→20:36)
[2020-04-18] MEDS: FOLIC ACID 1 MG TAB PO SCH (08:51)
--- NOTE | 2020-04-18 09:43 | MHIPNPDOC ---
[facility] Progress Note Progress Note DATE OF SERVICE: 04/18/20 HISTORY: The patient is met with today, she reports that she is doing well she is a bit anxious about being discharged as she reports she doesn't have ID and is worried about this being an issue with DSS. Discussed with patient her discharge plans she still ambivalent about having treatment for alcohol use problems and otherwise feels that it is not a major problem for her. The staff reports she is generally done well and mildly anxious but engaged and friendly. VITAL SIGNS: See below. NEW TEST RESULTS: None. CURRENT MEDICATIONS: See below. MENTAL STATUS EXAMINATION: General: [Well dressed with good hygiene] Speech: [Spontaneous and fluid] Thought processes: [Linear and logical] Thought content: [Future orientated] Abstract reasoning, and computation: [Intact] Description of associations: [Intact] Description of abnormal or psychotic thoughts:[Denies any suicidal or homicidal ideation. Denies any auditory or visual hallucinations. Does not appear to be responding to internal stimuli. Does not appear to be endorsing any bizarre or paranoid ideation.] Judgment: Fair to poor, related to alcohol use Insight: Fair to poor related to alcohol use Orientation: [Alert and orientated 3] Recent and remote memory: [Intact] Attention span and concentration: [Intact] Fund of knowledge: [Adequate] Mood: "Good" Affect: Mildly anxious DIAGNOSES: 1. Unspecified depressive disorder. 2. Alcohol use disorder unspecified. 3. . ASSESSMENT: The patient is making good progress, she still pre-contemplative about her alcohol use and is not interested in treatment related to it, she does appear to be doing well on her antidepressant and she has been amenable to taking the naltrexone. Will work on potential discharge plans including DSS as her grandmother has been not compromising on her returning to home. MANAGEMENT PLAN: Will continue Paxil 20 mg daily, naltrexone and Seroquel 150 mg nightly/25 mg daily. Potential for discharge tomorrow will attempt to begin safety planning today. TIME SPENT: 15 minutes. Vital Signs Vital Signs Date Time Temp Pulse Resp B/P (MAP) Pulse Ox O2 Delivery O2 Flow Rate FiO2 04/18/20 06:56 97.5 105 18 133/75 (94) 95 Room Air Current Medications Current Medications Medications (Trade) Dose Ordered Sig/Minerva Route PRN Reason Start Time Stop Time Status Last Admin Dose Admin Acetaminophen (Tylenol Tab) 650 mg Q6HP PRN PO HEADACHE or DISCOMFORT 04/08/20 13:30 04/17/20 09:49 Al Hydrox/Mg Hydrox/Simethicone (Mylanta) 30 ml Q4HP PRN PO HEARTBURN/INDIGESTION 04/08/20 13:30 Folic Acid (Folic Acid) 1 mg DAILY PO 04/08/20 09:00 04/08/20 13:30 DC 04/08/20 10:03 Folic Acid (Folic Acid) 1 mg DAILY PO 04/09/20 09:00 04/18/20 08:51 Home Med (Med Rec Complete!) ASDIRECTED XX 04/08/20 08:30 04/08/20 08:30 DC Hydroxyzine HCl (Atarax) 25 mg Q8HP PRN PO anxiety 04/14/20 14:00 04/18/20 08:51 Hydroxyzine HCl (Atarax) 25 mg STAT STAT PO 04/17/20 13:00 04/17/20 13:01 DC 04/17/20 13:07 Hydroxyzine HCl (Atarax) 50 mg Q8HP PRN PO anxiety 04/14/20 14:00 04/14/20 13:59 DC Lorazepam (Ativan) 2 mg ASDIRECTED PRN PO SEE PROTOCOL 04/07/20 22:00 04/08/20 13:31 DC 04/08/20 13:23 Lorazepam (Ativan) 2 mg ASDIRECTED PRN PO SEE PROTOCOL 04/08/20 13:30 04/10/20 20:57 Magnesium Hydroxide (Milk Of Magnesia) 30 ml DAILYPRN PRN PO CONSTIPATION 04/08/20 13:30 Mirtazapine (Remeron) 15 mg QHS PO 04/09/20 21:00 04/11/20 13:35 DC 04/10/20 20:57 Miscellaneous (Unresolved Clarification Entry) SEE LABEL COMMENTS DAILY XX 04/09/20 14:00 04/09/20 15:06 DC Multivitamins (Theragram-M) 1 tab DAILY PO 04/08/20 09:00 04/08/20 13:31 DC 04/08/20 10:03 Multivitamins (Theragram-M) 1 tab DAILY PO 04/09/20 09:00 04/18/20 08:51 Naltrexone HCl (Revia) 50 mg QAM PO 04/10/20 09:00 04/18/20 08:51 Paroxetine HCl (PAXil) 10 mg DAILY PO 04/09/20 09:00 04/08/20 20:58 DC Paroxetine HCl (PAXil) 10 mg QHS PO 04/08/20 21:00 04/11/20 13:35 DC 04/10/20 20:57 Paroxetine HCl (PAXil) 10 mg QHS PO 04/08/21 21:00 04/08/20 21:04 DC Paroxetine HCl (PAXil) 20 mg QHS PO 04/11/20 21:00 04/17/20 22:07 Prazosin HCl (Minipress) 1 mg QHS PO 04/09/20 21:00 04/17/20 22:06 Quetiapine Fumarate (SEROquel) 25 mg DAILY PO 04/09/20 09:00 04/18/20 08:51 Quetiapine Fumarate (SEROquel) 100 mg QHS PO 04/08/20 21:00 04/11/20 13:36 DC 04/10/20 20:57 Quetiapine Fumarate (SEROquel) 100 mg QHS PO 04/13/20 21:00 04/14/20 13:57 DC 04/13/20 21:17 Quetiapine Fumarate (SEROquel) 150 mg QHS PO 04/14/20 21:00 04/17/20 22:07 Thiamine HCl (Thiamine HCl) 100 mg BID PO 04/07/20 21:00 04/08/20 13:32 DC 04/08/20 10:03 Thiamine HCl (Thiamine HCl) 100 mg BID PO 04/08/20 21:00 04/10/20 09:01 DC 04/10/20 09:27 Trazodone HCl (Desyrel) 50 mg QHSP PRN PO INSOMNIA 04/08/20 13:30 Cancel Zolpidem Tartrate (Ambien) 2.5 mg QHS PO 04/11/20 21:00 04/12/20 14:55 DC 04/11/20 20:16 Zolpidem Tartrate (Ambien) 5 mg QHS PO 04/12/20 21:00 04/13/20 15:44 DC 04/12/20 20:34 Allergies Coded Allergies: Penicillins (Verified Allergy, Severe, THROAT SWELLING, 04/07/20) LEYLA KWON DO Apr 18, 2020 09:43
[2020-04-18] MEDS ORDERED: OXAZEPAM 10 MG CAP PO ONE (15:45)
[2020-04-18 16:49] VITALS: BP 123/87
[2020-04-18] MEDS: QUEtiapine FUMARATE 50 MG TAB PO SCH (20:36)
[2020-04-18] MEDS: PARoxetine 20 MG TAB PO SCH (20:36)
[2020-04-18 20:37] VITALS: BP 136/88
[2020-04-18] MEDS: PRAZOSIN 1 MG CAP PO SCH (20:37)
[2020-04-19 06:15] VITALS: BP 125/70
[2020-04-19] MEDS: FOLIC ACID 1 MG TAB PO SCH (08:35)
[2020-04-19] MEDS: NALTREXONE 50 MG TAB PO SCH (08:35)
[2020-04-19] MEDS: QUEtiapine FUMARATE 25 MG TAB PO SCH (08:36)
[2020-04-19] MEDS: MULTIVITAMINS/MINERALS THERAP 1 TAB PO SCH (08:36)
--- NOTE | 2020-04-19 09:56 | MHDSPDOC ---
[facility] Discharge Summary Discharge Summary DATE OF ADMISSION: Apr 08, 2020 at 13:22 DATE OF DISCHARGE:Apr 19, 2020 at 12:15 DISCHARGE DIAGNOSES: Unspecified depressive disorder Alcohol use disorder CONSULTANTS INVOLVED:[ None (basic hospitalist screening)] REASON FOR ADMISSION & TREATMENT AND PROGRESS ON THE UNIT : . The patient was admitted to the inpatient mental health unit after developing suicidal thoughts will intoxicated, she was admitted and resumed on her home Paxil 10 mg daily increased to a total 20 mg daily. She was additionally started on naltrexone 50 mg day for her alcohol use, she was tried on low-dose Ambien with poor results, mirtazapine did produce any helpfulness for her insomnia as well. She was resumed on Seroquel up to a total of the hundred 50 Milgram's daily 25 Milgram's a day, she reported this was helpful, but she was displeased with the weight gain, suggested use of melatonin as an outpatient. She generally did well and made good progress on the unit, despite some patience being more aggressive and threatening. She was able to cope with various stressors and only had to use PRN's intermittently. On her discharge. We had found some alcohol in her property, discussed with mental health director, and I discussed with the patient that my strongest recommendation that she not engage in drinking, especially given the situation, brought her in. We had attempted to get her to be able to be discharged home to her grandmother, but they would not accept her home due to her drinking even with use of disulfiram. The patient understood this and agreed in theory, however, was unwilling to relinquish the alcohol and given the information given to me by the mental health director is that we do not have the authority to refuse returning it. The patient was triaged for discharge with DSS, however she wants to stay with a friend that she had made on the unit, emphasize the importance of going to DSS in establishing services and suggested against this course of action. DISCHARGE ASSESSMENT[improved] Legal status considerations: The patient at the time of discharge did not meet criteria for involuntary admission/extension due to having a [normal] mental status exam, improved insight into the situation, They are engaged in the discharge process, as well as being friendly and amenable in behavioral control and havent been engaging in any observed concerning behavior or ideation recently. They decline voluntary extension/admission at this time and must be discharged in good suzi, as Im unable to make a case for holding the patient against their will. They may have historical risk factors of admissions and other interactions with psychiatry however, those are not modifiable from a clinical perspective. The patient will need to be discharged in good suzi. MENTAL STATUS EXAMINATION ON DISCHARGE: General: [Well dressed with good hygiene] Speech: [Spontaneous and fluid] Thought processes: [Linear and logical] Thought content: [Future orientated] Abstract reasoning, and computation: [Intact] Description of associations: [Intact] Description of abnormal or psychotic thoughts:[Denies any suicidal or homicidal ideation. Denies any auditory or visual hallucinations. Does not appear to be responding to internal stimuli. Does not appear to be endorsing any bizarre or paranoid ideation.] Judgment: improved Insight: improved Orientation: [Alert and orientated 3] Recent and remote memory: [Intact] Attention span and concentration: [Intact] Fund of knowledge: [Adequate] Mood: ["okay"] Affect: [Euthymic with a full range] PLAN/FOLLOWUP ARRANGEMENTS: Follow up appointments made (PCP and MH in 5 days of D/C date) and safety plan completed. Safety Planning aspects completed prior to discharge [Medication supplies limited to 7 days with 4 refills to prevent accumulation to OD] gave referral information for DSS strongest emphasis for going to DSS as soon as possible for housing [RN reviewed crisis hotline information and other aspects to empower patient to access care in interim before next appointment.] The amount of time spent in the coordination of care for this patient was roxane roximately 30 minutes. Vital Signs/I&Os Vital Signs Date Time Temp Pulse Resp B/P (MAP) Pulse Ox O2 Delivery O2 Flow Rate FiO2 04/19/20 06:15 97.7 90 16 125/70 (88) 97 Room Air Medications Scheduled Naltrexone HCl (Naltrexone HCl) 50 Mg Tablet, 50 MG PO QAM for craving for 7 Days, #7 Paroxetine HCl (Paroxetine HCl) 20 Mg Tablet, 20 MG PO QHS for mood for 7 Days, #7 Quetiapine Fumarate (Seroquel) 100 Mg Tablet, 150 MG PO QPM for 30 Days, #30 (Reported) Quetiapine Fumarate (Quetiapine Fumarate) 25 Mg Tablet, 25 MG PO QAM, (Reported) Quetiapine Fumarate (Quetiapine Fumarate) 100 Mg Tablet, 100 MG PO QHS, (Reported) Quetiapine Fumarate (Quetiapine Fumarate) 50 Mg Tablet, 150 MG PO QHS for mood for 7 Days, #21 Quetiapine Fumarate (Quetiapine Fumarate) 25 Mg Tablet, 25 MG PO DAILY for mood for 7 Days, #7 Allergies Coded Allergies: Penicillins (Verified Allergy, Severe, THROAT SWELLING, 04/07/20) LEYLA KWON DO Apr 19, 2020 09:56
[2020-04-19] MEDS ORDERED: QUET5TAB PO (10:13)
[2020-04-19] MEDS ORDERED: NALT50TA4 PO (10:13)
[2020-04-19] MEDS ORDERED: QUET1TAB7 PO (10:13)
[2020-04-19] MEDS ORDERED: PARO20TA3 PO (10:13)
[2021-04-08] MEDS ORDERED: PARoxetine 10MG TABLET PO SCH (21:00)
== END 2020-04-19 12:15 | disposition home or self-care (01) | DRG 751 ==
LOC: M ED 18:59 → EDBD 18:59 → M ED INP 04-08 13:22 → M PSY 04-08 14:28
PROVIDERS: ADMIT Psychiatry & Neurology Addiction Medicine; ATTEND Psychiatry & Neurology Addiction Medicine
DX: F33.9 Major depressive disorder, recurrent, unspecified (principal); F40.01 Agoraphobia with panic disorder; F40.10 Social phobia, unspecified; F10.10 Alcohol abuse, uncomplicated; F43.10 Post-traumatic stress disorder, unspecified; Z62.810 Personal history of physical and sexual abuse in childhood; Z91.410 Personal history of adult physical and sexual abuse; Z91.411 Personal history of adult psychological abuse; Z79.899 Other long term (current) drug therapy; Z59.0 Homelessness

== ENCOUNTER 2020-05-13 05:13 | Inpatient (IN) | payer MEDICAID, OTHER ==
[~2020-05-13] VITALS: Ht 157.5 cm; Wt 64.9 kg
[~2020-05-13 05:13] MED LIST: CHAN1PAK11 PO; NALT50TA4 PO; PARO20TA3 PO; PARO5TAB PO; PAXI20TA29 PO; QUET100T2 PO; QUET1TAB7 PO; QUET5TAB PO; SERO1TAB PO
[2020-05-13] MEDS ORDERED: KLON0.5T PO (05:23)
[2020-05-13] MEDS ORDERED: NS 1,000 ML IV ONE ×2 (05:30)
[2020-05-13] MEDS ORDERED: CHARCOAL ACTIVATED LIQUID 25 GM/120 ML BTL PO ONE (06:00)
[2020-05-13 06:10] LABS: VENOUS BASE EXCESS -2.8 (-2.0-2.0); VENOUS HCO3 22.8 MEQ/L (23.0-27.0); VENOUS O2 SATURATION 96.1 % (60.0-80.0); VENOUS PARTIAL PRESSURE CO2 42.2 mmHg (38.0-50.0); VENOUS PARTIAL PRESSURE O2 86.5 mmHg (30.0-50.0); VENOUS STANDARD HCO3 22.2 MEQ/L; VENOUS TOTAL CO2 24.1 MEQ/L (24.0-28.0)
[2020-05-13 06:14] LABS: BASO # 0.1 10^3/uL (0.0-0.2); BASO % 0.9 % (0.0-1.0); EOS # 0.3 10^3/uL (0.0-0.5); EOS % 3.3 % (0.0-3.0); HEMATOCRIT 41.9 % (36.0-47.0); HEMOGLOBIN 14.3 g/dl (12.0-15.5); LYMPH # 1.9 10^3/uL (1.5-5.0); LYMPH % 24.7 % (24.0-44.0); MEAN CORPUSCULAR HEMOGLOBIN 32.3 pg (27.0-33.0); MEAN CORPUSCULAR HGB CONC 34.1 g/dl (32.0-36.5); MEAN CORPUSCULAR VOLUME 94.6 fl (80.0-96.0); MONO # 0.6 10^3/uL (0.0-0.8); MONO % 7.8 % (0.0-5.0); NEUTROPHILS # 4.7 10^3/uL (1.5-8.5); NEUTROPHILS % 62.5 % (36.0-66.0); PLATELET COUNT, AUTOMATED 249 10^3/uL (150-450); RED BLOOD COUNT 4.43 10^6/uL (4.00-5.40); WHITE BLOOD COUNT 7.5 10^3/uL (4.0-10.0)
[2020-05-13] MEDS ORDERED: ONDANSETRON 4MG/2ML VIAL IV ONE (06:30)
[2020-05-13 06:56] LABS: ACETAMINOPHEN LEVEL < 2.0 UG/ML (10.0-30.0); ALBUMIN 4.1 GM/DL (3.2-5.2); ALT/SGPT 25 U/L (12-78); BILIRUBIN,DIRECT < 0.1 MG/DL (0.0-0.2); BILIRUBIN,TOTAL 0.1 MG/DL (0.2-1.0); BLOOD UREA NITROGEN 11 MG/DL (7-18); CARBON DIOXIDE LEVEL 27 MEQ/L (21-32); CHLORIDE LEVEL 107 MEQ/L (98-107); CPK CREATINE PHOSPHOKINASE 180 U/L (26-192); CREATININE FOR GFR 0.67 MG/DL (0.55-1.30); ETHYL ALCOHOL (ETHANOL) 0.285 % (0.000-0.010); GLOMERULAR FILTRATION RATE > 60.0 (>60); GLUCOSE, FASTING 101 MG/DL (70-100); POTASSIUM SERUM 3.7 MEQ/L (3.5-5.1); SALICYLATE LEVEL 3.1 MG/DL (5.0-30.0); SODIUM LEVEL 142 MEQ/L (136-145); THYROID STIMULATING HORMONE 0.807 uIU/ML (0.358-3.740); TOTAL PROTEIN 7.5 GM/DL (6.4-8.2)
--- NOTE | 2020-05-13 07:38 | ECGEPIP ---
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
[2020-05-13 08:42] LABS: AMPHETAMINES LEVEL URINE NEGATIVE (NEGATIVE); BARBITURATES URINE NEGATIVE (NEGATIVE); BENZODIAZEPINES URINE NEGATIVE (NEGATIVE); CANNABINOIDS URINE POSITIVE (NEGATIVE); COCAINE METABOLITE URINE NEGATIVE (NEGATIVE); METHADONE URINE NEGATIVE (NEGATIVE); OPIATES URINE NEGATIVE (NEGATIVE); PHENCYCLIDINE URINE NEGATIVE (NEGATIVE)
[2020-05-13 08:46] LABS: RSV AMPLIFICATION NEGATIVE (NEGATIVE)
[2020-05-13] MEDS ORDERED: FOLIC ACID 1 MG TAB PO SCH (09:00)
[2020-05-13] MEDS ORDERED: MULTIVITAMINS/MINERALS THERAP 1 TAB PO SCH (09:00)
[2020-05-13] MEDS ORDERED: LORazepam 2 MG TAB PO PRN (13:45)
[2020-05-13] MEDS: THIAMINE 100 MG TAB PO SCH ×2 (14:35→21:47)
[2020-05-13] MEDS ORDERED: PARO20TA3 PO (16:13)
[2020-05-13] MEDS ORDERED: QUET5TAB PO (16:13)
[2020-05-13] MEDS ORDERED: MOM 30ML SUSPENSION UDC PO PRN (21:45)
[2020-05-13] MEDS ORDERED: ACETAMINOPHEN TAB 650MG DOSE (2X325MG) PO PRN (21:45)
[2020-05-13] MEDS ORDERED: traZODone 50 MG TAB PO PRN (21:45)
[2020-05-13] MEDS ORDERED: MAALOX 30 ML SUSP *UDC PO PRN (21:45)
[2020-05-13 22:48] VITALS: BP 135/85
[2020-05-13] MEDS: PARoxetine 20MG TABLET PO SCH (22:50)
[2020-05-13] MEDS: QUEtiapine FUMARATE 50 MG TAB PO SCH (22:51)
[2020-05-13] MEDS: LORazepam 2 MG TAB PO PRN (23:05)
[2020-05-14 06:32] VITALS: BP 132/91
[2020-05-14] MEDS: QUEtiapine FUMARATE 25 MG TAB PO SCH (08:42)
[2020-05-14] MEDS: THIAMINE 100 MG TAB PO SCH ×2 (08:43→20:50)
[2020-05-14] MEDS: FOLIC ACID 1 MG TAB PO SCH (08:43)
[2020-05-14] MEDS: MULTIVITAMINS/MINERALS THERAP 1 TAB PO SCH (08:43)
[2020-05-14] MEDS: NICOTINE 21MG/24HR 1 EA TRANSDERMAL TD SCH (08:43)
[2020-05-14 08:49] VITALS: BP 163/81
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
[2020-05-14 16:00] VITALS: BP 158/92
[2020-05-14] MEDS: LORazepam 2 MG TAB PO PRN ×2 (16:10→21:49)
--- NOTE | 2020-05-14 17:37 | HPEPDOC ---
[facility] Medical History & Physical Date of Admission May 13, 2020 Date of Service: May 14, 2020 Attending Physician: MARILY POSADAS DO History and Physical CHIEF COMPLAINT: Unspecified depressive disorder HISTORY OF PRESENT ILLNESS: Ms. Capellan is a 35 year old female with alcohol use disorder, depression, anxiety, and PTSD who is in the inpatient mental health unit for unspecified depressive disorder. She was recently here on Apr 19, 2020 for depression with suicidal ideation. After leaving, she was under a lot of stress. It got to the point where she did not care any more and she injected meth and keila. Afterwards, she realized she needed help and is now in the inpatient mental health unit. Today, she feels anxious, but feels that this is part of the alcohol withdrawal. Otherwise she has tremors in her hands. PAST MEDICAL HISTORY: 1. Anxiety 2. Depression 3. Alcohol use disorder 4. PTSD PAST SURGICAL HISTORY: Denies any past surgical history SOCIAL HISTORY: Tobacco use: Current smoker ETOH: Drinks alcohol, currently undergoing withdrawal symptoms Illicit drug use: Recent used IV meth and keila, but says it has been a decade since she last used IV drugs FAMILY HISTORY: Father: Unknown history per patient Mother: Diabetes mellitus ALLERGIES: Please see below. REVIEW OF SYSTEMS: CONSTITUTIONAL: Denies any fever or chills. Denies lightheadedness or dizziness. ENT: Denies sore throat. Denies dysphagia. RESPIRATORY: Denies shortness of breath. Denies cough. CARDIOVASCULAR: Denies chest pain. Denies palpitations. GASTROINTESTINAL: Denies abdominal pain. Reports constipation (normal BM for her is every other day) GENITOURINARY: Denies dysuria. CUTANEOUS: Denies rashes. MUSCULOSKELETAL: Denies muscle weakness. NEUROLOGICAL: Denies neuropathy. Denies paresthesias. PSYCHOLOGICAL: Reports anxiety. HOME MEDICATIONS: Please see below. PHYSICAL EXAMINATION: VITAL SIGNS: Temperature 97.5, pulse 90, respiratory rate 99, blood pressure 158/92, pulse oximetry 99 % on room air. GENERAL: Comfortable, in no apparent distress. HEENT: Head normocephalic/atraumatic, EOMI, sclera clear. NECK: Supple, no JVD. RESPIRATORY: Lungs clear to auscultation bilaterally, no rales, wheeze or rho nchi. CARDIOVASCULAR: Regular rate and rhythm. ABDOMEN: Soft, nontender, no guarding or rebound tenderness. Normal bowel sounds. MUSCLE SKELETAL: Muscle strength 5/5 in all extremities. NEUROLOGICAL: CN 312 grossly intact, no focal deficits noted. PSYCHOLOGICAL: Normal mood and affect LABORATORY DATA: See below. MICROBIOLOGY: Please see below. ASSESSMENT and PLAN: 1. Unspecified depressive disorder -Being managed in the inpatient mental health unit 2. IV drug abuse -Has not used in a decade, but under stress she used IV meth and molley -She has requested testing for HIV, Hep A, and Hep B -Will order test 3. Hypertension -Current blood pressure is elevated, but yesterday, SBP was below 120 -Elevation may be secondary to withdrawal -Continue monitoring BP. If BP continues to be elevated after withdrawal, can add on an antihypertensive 4. Tobacco use -Nicotine patch 5. Alcohol withdrawal -CIWA, thiamine, folic acid, and multivitamins 6. Contraception -She is interested in contraception. She will need to talk to either her [employer] ATTENDANT or PCP about contraception options Thank you for consulting us. We will sign off at this time. Please do not hesitate to reconsult us if there are any questions or concerns Vital Signs Vital Signs Date Time Temp Pulse Resp B/P (MAP) Pulse Ox O2 Delivery O2 Flow Rate FiO2 05/14/20 16:00 90 158/92 05/14/20 08:58 Room Air 05/14/20 06:32 97.5 16 99 Home Medications Scheduled Paroxetine HCl (Paroxetine HCl) 20 Mg Tablet, 20 MG PO QHS Quetiapine Fumarate (Quetiapine Fumarate) 25 Mg Tablet, 25 MG PO QAM Quetiapine Fumarate (Quetiapine Fumarate) 50 Mg Tablet, 150 MG PO QHS Scheduled PRN Clonazepam (Klonopin) 0.5 Mg Tablet, 0.5 MG PO BID PRN for anxiety Allergies Coded Allergies: Penicillins (Verified Allergy, Severe, THROAT SWELLING, 04/07/20) A-FIB/CHADSVASC A-FIB History Current/History of A-Fib/PAF?: No MARILY POSADAS DO May 14, 2020 17:37
[2020-05-14 18:00] VITALS: BP 134/74
[2020-05-14] MEDS: QUEtiapine FUMARATE 50 MG TAB PO SCH (20:50)
[2020-05-14] MEDS: PARoxetine 20MG TABLET PO SCH (20:50)
[2020-05-14 21:41] VITALS: BP 136/84
[2020-05-15 06:34] VITALS: BP 139/85
[2020-05-15 07:42] VITALS: BP 139/85
[2020-05-15] MEDS: QUEtiapine FUMARATE 25 MG TAB PO SCH (08:34)
[2020-05-15] MEDS: MULTIVITAMINS/MINERALS THERAP 1 TAB PO SCH (08:35)
[2020-05-15] MEDS: FOLIC ACID 1 MG TAB PO SCH (08:35)
[2020-05-15] MEDS: THIAMINE 100 MG TAB PO SCH ×2 (08:35→20:21)
[2020-05-15] MEDS: NICOTINE 21MG/24HR 1 EA TRANSDERMAL TD SCH (08:36)
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
[2020-05-15 16:30] VITALS: BP 132/84
[2020-05-15 18:00] VITALS: BP 132/84
[2020-05-15] MEDS: PARoxetine 20MG TABLET PO SCH (20:21)
[2020-05-15] MEDS: QUEtiapine FUMARATE 50 MG TAB PO SCH (20:21)
[2020-05-15 20:22] VITALS: BP 132/88
[2020-05-16 06:00] VITALS: BP 137/82
[2020-05-16 06:20] VITALS: BP 137/82
[2020-05-16] MEDS: MULTIVITAMINS/MINERALS THERAP 1 TAB PO SCH (08:35)
[2020-05-16] MEDS: NICOTINE 21MG/24HR 1 EA TRANSDERMAL TD SCH (08:36)
[2020-05-16] MEDS: QUEtiapine FUMARATE 25 MG TAB PO SCH (08:36)
[2020-05-16] MEDS: FOLIC ACID 1 MG TAB PO SCH (08:36)
[2020-05-16] MEDS: THIAMINE 100 MG TAB PO SCH (08:41)
[2020-05-16 09:07] LABS: CK 1 (BB) 0 % (0); CK 2 (MB) 0 % (0-3); CK 3 (MM) 100 % (97-100); CK MACRO I PERCENT 0 % (Not Observed); CK MACRO II PERCENT 0 % (Not Observed); CK TOTAL 173 U/L (32-182)
[2020-05-16] MEDS ORDERED: FOLI1TAB11 PO (10:05)
[2020-05-16] MEDS ORDERED: QUET5TAB PO (10:05)
[2020-05-16] MEDS ORDERED: QUET1TAB7 PO (10:05)
[2020-05-16] MEDS ORDERED: VITMTA PO (10:05)
[2020-05-16] MEDS ORDERED: NICO21PAT TD (10:05)
[2020-05-16] MEDS ORDERED: THIA100TA PO (10:05)
[2020-05-16] MEDS ORDERED: PARO20TA3 PO (10:05)
[2020-05-16] MEDS ORDERED: MELA3TAB24 PO (10:05)
--- NOTE | 2020-05-16 10:31 | MHDSPDOC ---
[facility] Discharge Summary Discharge Summary DATE OF ADMISSION: May 13, 2020 at 21:42 DATE OF DISCHARGE: May 16, 2020 at 1017 DISCHARGE DIAGNOSES: 1. Alcohol Induced Depressive Disorder 2. Adjustment Disorder REASON FOR ADMISSION: Patient is a 35 -year-old , female, who presented to [facility] with increasing anxiety and depression, reporting that she had relapsed on alcohol and had difficulty with her housing situation since her last discharge. She reported that she became increasingly anxious and worried and had difficulty being able to cope with her anxiety and went back to drinking alcohol. She reports she presented with increasing passive suicidal ideation. She reports that this time she has significant anxiety in the setting of alcohol withdrawal. CONSULTANTS INVOLVED: See H + P by Hospitalist TREATMENT AND PROGRESS ON THE UNIT: Patient was admitted to the [facility] on a 9.39 legal status he was afforded the following treatment modalities: 1) Individual Therapy 2) Group Therapy 3) Medication Management 4) Milieu Therapy 5) Safe Environment HOSPITAL COURSE: Patient admitted to [facility] on a Voluntary Legal Status. She was restarted on her home medications with the exception of Clonazepam. She was compliant with treatment and on 05/15/20 she requested a written request for discharge. Patient reports that much of her issues are her substance use and that she has moderate anxiety throughout the day. On this occasion, her anxiety had spiked and she was unable to calm herself down to manageable level and felt that she needed to be admitted. DISCHARGE ASSESSMENT: On interview, patient is alert and oriented, denies depression that is debilitating but she is always dysthymic. She states that her depression is at a level that she can manage in the community. She denies suicidal or homicidal ideation, planning or intent. She is not observed and denies jase, psychotic symptoms, delusions, auditory or visual hallucinations, paranoid, obsessions or bizarre thinking. She states that she is currently awaiting to get into an apartment which was arranged by her case therapist. She reports that while she waits for her apartment she will be residing with her boyfriend in the meantime. She follows up with a private therapist and Telepsychiatry agency [facility]. Patient does not present as a danger to herself or others and is not having psychiatric symptoms that warrants continued hospitalization. At this time, she meets criteria for discharge by the treatment team. MENTAL STATUS EXAMINATION ON DISCHARGE: Patient is a 35 -year-old Single, Unemploped, Undomiciled, , female, who presented to [facility] with increasing anxiety and depression, Speech: Is fluid, conversant, normal rate, tone and volume Language skills are intact Thought processes including: linear and goal oriented Thought content: denies mild depression and mild to moderate anxiety. Denies suicidal/homicidal ideation, planning or intent. Abstract reasoning, and computation: fair Description of associations: denies, none observed Description of abnormal or psychotic thoughts: denies, none observed. Judgment: fair Insight: fair Orientation: alert and oriented to person, place, time and situation Recent and remote memory: intact Attention span and concentration: good Language: expansive Fund of knowledge: average Mood: Euthymic Mood Affect: reactive MEDICATIONS ON DISCHARGE: see Medication Reconciliation PLAN/FOLLOWUP ARRANGEMENTS: Patient follows up with Private Therapist and [facility] - Telepsychiatry The amount of time spent in the coordination of care for this patient was approximately 25 minutes. Vital Signs/I&Os Vital Signs Date Time Temp Pulse Resp B/P (MAP) Pulse Ox O2 Delivery O2 Flow Rate FiO2 05/16/20 06:20 98.2 73 12 137/82 (100) Room Air 05/15/20 06:34 99 Medications Scheduled Folic Acid (Folic Acid) 1 Mg Tablet, 1 MG PO DAILY for Vitamin Replacement, #7 Melatonin (Melatonin) 3 Mg Tab.rapdis, 3 MG PO QPM for sleep, #7 Multivitamins (Thera M Plus Tablet) 1 Each Tablet, 1 TAB PO DAILY for Vitamin Replacement, #7 Nicotine (Nicotine Patch) 21 Mg Patch.td24, 1 PATCH TD DAILY for Nicotine Withdrawal, #7 Paroxetine HCl (Paroxetine HCl) 20 Mg Tablet, 20 MG PO QHS for Anti-Depressant, #7 Quetiapine Fumarate (Quetiapine Fumarate) 25 Mg Tablet, 25 MG PO QAM for Mood Stabilizer, #7 Quetiapine Fumarate (Quetiapine Fumarate) 50 Mg Tablet, 150 MG PO QHS for Insomnia, #21 Thiamine Hcl (Vitamin B-1) 100 Mg Tablet, 100 MG PO BID for Vitamin Replacement, #14 Allergies Coded Allergies: Penicillins (Verified Allergy, Severe, THROAT SWELLING, 04/07/20) SARAI MAGALLANES NP May 16, 2020 10:31
[2020-05-16 13:57] LABS: HEPATITIS A ANTIBODY IGM NEGATIVE (NEGATIVE); HEPATITIS B CORE ANTIBODY IGM NEGATIVE (NEGATIVE); HEPATITIS B SURFACE ANTIGEN NEGATIVE (NEGATIVE); HEPATITIS C VIRUS ABY INDEX 0.1 INDEX (<0.8); HIV 1&2 SCREEN CENTAUR NEGATIVE (NEGATIVE)
== END 2020-05-16 15:46 | disposition home or self-care (01) | DRG 775 ==
LOC: M ED 05:13 → M ED INP 21:42 → M PSY 22:35
PROVIDERS: ADMIT Psychiatry & Neurology Addiction Medicine; ATTEND Psychiatry & Neurology Psychiatry
DX: F10.94 Alcohol use, unspecified with alcohol-induced mood disorder (principal); I10 Essential (primary) hypertension; F43.20 Adjustment disorder, unspecified; Z79.899 Other long term (current) drug therapy; Z88.0 Allergy status to penicillin; F41.9 Anxiety disorder, unspecified; F17.200 Nicotine dependence, unspecified, uncomplicated